=== PATIENT | female | born 1970 | race Caucasian/White ===

== ENCOUNTER 2025-03-10 08:48 | Emergency (ER) | payer OTHER, SELFPAY ==
[2025-03-10] VITALS (14 sets, daily range): BP systolic 174–212; BP diastolic 84–161; PULSE 78; TEMP 36.8; O2SAT 98–100; BMI 20.4
--- NOTE | 2025-03-10 09:25 | ED_ITS ---
HPI HPI - General Adult General Chief complaint: Nausea/Vomiting/Diarrhea Stated complaint: NAUSEA,VOMITING, DIARRHEA Time Seen by Provider: 03/10/25 09:09 Source: patient Mode of arrival: walk-in History of Present Illness HPI narrative: I had the patient 54 years old presenting to us from the [facility] the detox facility after she presented there Monday almost 7 days ago and she started having on Monday 3 days ago symptoms of nausea vomiting and diarrhea, the patient also is requesting her anxiety medication as she is feeling anxious she usually takes clonazepam which she was using for years before they stopped it because she is presenting for detox The patient did not have any significant abdominal pain specially that she said that she have some discomfort mostly from nausea and vomiting No blood in vomiting or any blood in stool Related Data Home Medications ?Medication ?Instructions ?Recorded ?Confirmed acetaminophen 500 mg tablet mg 03/10/25 albuterol sulfate 90 mcg/actuation inhalation 03/10/25 aerosol inhaler aripiprazole 30 mg tablet mg 03/10/25 buspirone 15 mg tablet mg 03/10/25 clonazepam 0.5 mg tablet mg 03/10/25 clonidine HCl 0.1 mg tablet mg 03/10/25 dicyclomine 20 mg tablet mg 03/10/25 docusate sodium 100 mg capsule mg PO 03/10/25 electrolytes, oral (Pedialyte ml PO 03/10/25 Electrolyte Water oral solution) folic acid 1 mg tablet 03/10/25 hydroxyzine pamoate 25 mg capsule mg 03/10/25 ibuprofen 800 mg tablet mg 03/10/25 lamotrigine 100 mg tablet mg 03/10/25 lamotrigine 100 mg tablet 100 mg PO QDAY 03/10/2502/24 (Lamictal) lisinopril 10 mg tablet mg 03/10/25 magnesium oxide mg 03/10/25 melatonin 10 mg capsule mg 03/10/25 multivitamin tab 03/10/25 naloxone 4 mg/actuation nasal spray intranasal 5 omeprazole 20 mg capsule,delayed mg 03/10/25 release paroxetine HCl 20 mg tablet (Paxil) 20 mg PO DAILY 03/10/25 Previous Rx's ?Medication ?Instructions ?Recorded famotidine 20 mg tablet (Pepcid) 20 mg PO BID #20 tabs 03/10/25 promethazine 25 mg tablet 25 mg PO TID PRN nausea and 03/10/25 vomiting #20 tabs Allergies Allergy/AdvReac Type Severity Reaction Status Date / Time cyclobenzaprine Allergy Severe muscle Verified 03/10/25 08:58 spasms Opioid HPI Opioid Management Most Recent Opioid Data: Last Pain Scale 6 Today, 09:05 Review of Systems ROS Status of ROS 10 or more systems reviewed and unremark able except as noted in history and below PFSH PFSH Social History Little interest or pleasure in doing things: not at all Feeling down, depressed, or hopeless: not at all Exam Narrative Exam Narrative: Nurses notes and vital signs reviewed and patient is not hypoxic. General: Well-appearing and in no apparent distress. Skin: Warm, dry, no pallor noted. No rash. Head: Normocephalic, atraumatic. Neck: Supple, non-tender. Cardiovascular: Regular Rate and Rhythm without murmur, gallop or rub. Respiratory: No accessory muscle use or respiratory distress. Lungs are clear to auscultation, no wheezing, rales or rhonchi Chest Wall: no tenderness Back: No midline thoracic or lumbar vertebral tenderness. No CVA tenderness Musculoskeletal: normal ROM, no calf or popliteal tenderness, no lower extremity edema/swelling GI: Abdomen is soft, non-distended. Normal bowel sounds. No masses appreciated. No tenderness to palpation. No rebound, guarding, or rigidity noted. Neurological: A&O x4. No cranial nerve dysfunction observed. No truncal ataxia. Moves all extremities. Sensation intact. Psychiatric: Cooperative and interactive. Normal mood and affect. Constitutional Vital Signs, click to edit/add: Last Vital Signs Temp 98.3 F 03/10/25 09:03 Pulse 78 03/10/25 09:03 Resp 16 03/10/25 09:03 BP 174/94 H 03/10/25 11:30 Pulse Ox 98 03/10/25 11:15 O2 Del Method Room Air 03/10/25 09:03 Course Vital Signs Vital signs: Vital Signs Temperature 98.3 F 03/10/25 09:03 Pulse Rate 78 03/10/25 09:03 Respiratory Rate 16 03/10/25 09:03 Blood Pressure 198/95 H 03/10/25 09:03 Pulse Oximetry 100 03/10/25 09:03 Oxygen Delivery Method Room Air 03/10/25 09:03 Temperature 98.3 F 03/10/25 09:03 Pulse Rate 78 03/10/25 09:03 Respiratory Rate 16 03/10/25 09:03 Blood Pressure 174/94 H 03/10/25 11:30 Pulse Oximetry 98 03/10/25 11:15 Oxygen Delivery Method Room Air 03/10/25 09:03 Medical Decision Making MDM Narrative Medical decision making narrative: The patient abdominal examination was benign she had a CBC here that showed some leukocytosis but it is mostly reactive and there is no source of infection Chemistry was within normal and the patient was feeling better after initially being treated with Zofran then Compazine She also had clonidine here and she does take that other blood pressure medication as well with instruction to continue taking that when she is in detox facility Right now the patient just to continue hydration she was discharged home with Phenergan after feeling much better and she tolerated p.o. here adequately The patient to come back to the ER in case of any new symptoms or concerns and in case of repetitive symptoms we have to consider benzodiazepine withdrawal to the patient was provided with 1 dose of clonazepam here as part of her previous treatment for anxiety The patient to follow-up with the primary care within 2 to 3 days and to come back to the ER in case of any worsening of the current symptoms or any new symptoms or concerns Lab Data Labs: Lab Results 03/10/25 Range/Units 09:21 WBC 15.8 H (4.0-11.0) 10^3/uL RBC 5.11 (4.20-5.40) 10^6/uL Hgb 14.4 (12.0-16.0) g/dL Hct 43.6 (36.0-48.0) % MCV 85.3 (81.0-99.0) fL MCH 28.2 (26.7-34.0) pg MCHC 33.0 (29.9-35.2) g/dL RDW 15.3 H (11.0-15.0) % Plt Count 388 (150-450) 10^3/uL MPV 8.4 L (9.5-13.5) fL Neut % (Auto) 81.0 H (43.0-75.0) % Lymph % (Auto) 12.8 L (20.5-60.0) % [place] % (Auto) 5.3 (1.7-12.0) % Eos % (Auto) 0.1 L (0.9-7.0) % Baso % (Auto) 0.4 (0.2-2.0) % Neut # (Auto) 12.8 H (1.4-6.5) 10^3/uL Lymph # (Auto) 2.0 (1.2-3.8) 10^3/uL [place] # (Auto) 0.8 (0.3-0.8) 10^3/uL Eos # (Auto) 0.0 (0.0-0.7) 10^3/uL Baso # (Auto) 0.1 (0.0-0.1) 10^3/uL Abs Immat Gran (auto) 0.06 H (0.00-0.03) 10^3/uL Imm/Tot Granulo (auto) 0.4 (0.0-0.5) % Sodium 138 (136-145) mmol/L Potassium 4.1 (3.5-5.1) mmol/L Chloride 100 (98-107) mmol/L Carbon Dioxide 29.5 (21.0-32.0) mmol/L Anion Gap 12.6 BUN 13.0 (7.0-18.0) mg/dL Creatinine 0.72 (0.55-1.02) mg/dL Est GFR ( Amer) >60 (>=60 mL/min/1.73m^2) Est GFR (Non-Af Amer) >60 (>=60 mL/min/1.73m^2) BUN/Creatinine Ratio 18.1 Glucose 115 H (74-106) mg/dL Calcium 9.9 (8.5-10.1) mg/dL Total Bilirubin 0.6 (0.2-1.0) mg/dL AST 47 H (15-37) U/L ALT 30 (14-59) U/L Alkaline Phosphatase 76 (46-116) U/L Total Protein 8.1 (6.4-8.2) g/dL Albumin 4.4 (3.4-5.0) g/dL Globulin 3.7 g/dL Albumin/Globulin Ratio 1.2 Discharge Plan Discharge Chief Complaint: Nausea/Vomiting/Diarrhea Clinical Impression: Nausea & vomiting Patient Disposition: Home, Self-Care Time of Disposition Decision: 11:47 Condition: Good Prescriptions / Home Meds: New promethazine 25 mg tablet 25 mg PO TID PRN (Reason: nausea and vomiting) Qty: 20 0RF famotidine [Pepcid] 20 mg tablet 20 mg PO BID Qty: 20 0RF No Action lamotrigine [Lamictal] 100 mg tablet 100 mg PO QDAY paroxetine HCl [Paxil] 20 mg tablet 20 mg PO DAILY acetaminophen 500 mg tablet albuterol sulfate 90 mcg/actuation HFA aerosol inhaler INHALATION buspirone 15 mg tablet aripiprazole 30 mg tablet multivitamin Tablet clonidine HCl 0.1 mg tablet ibuprofen 800 mg tablet clonazepam 0.5 mg tablet dicyclomine 20 mg tablet lisinopril 10 mg tablet magnesium oxide 500 mg magnesium tablet docusate sodium 100 mg capsule PO omeprazole 20 mg capsule,delayed release(DR/EC) folic acid 1 mg tablet lamotrigine 100 mg tablet hydroxyzine pamoate 25 mg capsule melatonin 10 mg capsule naloxone 4 mg/actuation spray,non-aerosol INTRANASAL Pedialyte Electrolyte Water Solution PO Print Language: Pakistani Instructions: Acute Nausea and Vomiting (DC) Additional Instructions: Please make sure that the patient continue to take her clonidine daily for hypertension management as per prescribed by her home medication In case of repetitive symptoms the patient with history of benzodiazepine use for a long time she might be withdrawing from benzodiazepine as well The patient tolerated p.o. fluid here in the ER and she was just continue home with liquid soft diet for few days then upgraded to regular diet Referrals: Physician,Non-Staff, MD [Primary Care Provider] - 1 week Discharge Date/Time: 03/10/25 12:08
[2025-03-10] MEDS: 0.9 % SODIUM CHLORIDE 1,000 ML 500 ML IV (09:28)
[2025-03-10] MEDS: FAMOTIDINE/PF 20 MG/2 ML VIAL IV (09:29)
[2025-03-10 09:31] LABS: Hematocrit 43.6 % (36.0-48.0); Hemoglobin 14.4 g/dL (12.0-16.0); Immature Granulocytes Abs Auto 0.06 10^3/uL (0.00-0.03); Immature Granulocytes Pct Auto 0.4 % (0.0-0.5); Lymphocytes Absolute Auto 2.0 10^3/uL (1.2-3.8); Mean Corpuscular HGB Conc 33.0 g/dL (29.9-35.2); Mean Corpuscular Hemoglobin 28.2 pg (26.7-34.0); Mean Corpuscular Volume 85.3 fL (81.0-99.0); Platelet Count 388 10^3/uL (150-450); Red Blood Count 5.11 10^6/uL (4.20-5.40); White Blood Count 15.8 10^3/uL (4.0-11.0)
[2025-03-10] MEDS: CLONAZEPAM 0.5 MG TABLET PO (09:46)
[2025-03-10 09:55] LABS: Alanine Aminotransferase 30 U/L (14-59); Albumin Globulin Ratio 1.2; Albumin Level 4.4 g/dL (3.4-5.0); Alkaline Phosphatase 76 U/L (46-116); Anion Gap 12.6; Aspartate Amino Transferase 47 U/L (15-37); Blood Urea Nitrogen 13.0 mg/dL (7.0-18.0); Calcium 9.9 mg/dL (8.5-10.1); Carbon Dioxide 29.5 mmol/L (21.0-32.0); Chloride 100 mmol/L (98-107); Estimated GFR (African America >60 (>=60 mL/min/1.73m^2); Estimated GFR (Non-African Ame >60 (>=60 mL/min/1.73m^2); Globulin 3.7 g/dL; Glucose 115 mg/dL (74-106); Potassium 4.1 mmol/L (3.5-5.1); Sodium 138 mmol/L (136-145); Total Protein 8.1 g/dL (6.4-8.2)
[2025-03-10] MEDS: CLONIDINE HCL 0.1 MG TABLET PO (10:57)
[2025-03-10] MEDS: PROCHLORPERAZINE 10 MG/2 ML VIAL IV (10:59)
== END 2025-03-10 12:08 | disposition home or self-care (01) ==
PROVIDERS: Emergency Provider Emergency Medicine
DX: R11.2 Nausea with vomiting, unspecified (principal)
CPT/HCPCS: 36415; 80053; 85025; 96361; 96374; 96375; 99284; J0780; J2405; J3490